=== PATIENT | male | born 1945 | race Caucasian/White ===

== ENCOUNTER 2017-12-07 11:53 | Emergency (ER) | payer MEDICARE, MEDICAID ==
[~2017-12-07] VITALS: Ht 177.8 cm; Wt 79.0 kg
[~2017-12-07 11:53] MED LIST: BAC15O TP; DOXY100C43 PO; NIZ2CR CORPAK; NO HOME MEDS
[2017-12-07 11:56] VITALS: BP 187/93
== END 2017-12-07 13:30 | disposition home or self-care (01) ==
LOC: ER 11:53
DX: J02.8 Acute pharyngitis due to other specified organisms (principal); G89.29 Other chronic pain; Z98.890 Other specified postprocedural states; Z79.899 Other long term (current) drug therapy
CPT/HCPCS: 99281

== ENCOUNTER 2020-12-30 07:34 | Emergency (ER) | payer MEDICARE, MEDICAID ==
[~2020-12-30] VITALS: Ht 177.8 cm; Wt 77.3 kg
[~2020-12-30 07:34] MED LIST changes: +METH-360 PO
[2020-12-30 07:56] VITALS: BP 179/105
== END 2020-12-30 08:34 | disposition home or self-care (01) ==
LOC: ER 07:35
DX: H93.8X2 Other specified disorders of left ear (principal); I10 Essential (primary) hypertension; G89.29 Other chronic pain; F12.90 Cannabis use, unspecified, uncomplicated; F17.200 Nicotine dependence, unspecified, uncomplicated; Z86.14 Personal history of Methicillin resistant Staphylococcus aureus infection; Z72.89 Other problems related to lifestyle; Z98.890 Other specified postprocedural states; Z88.8 Allergy status to other drugs, medicaments and biological substances; Z79.2 Long term (current) use of antibiotics; Z79.899 Other long term (current) drug therapy
CPT/HCPCS: 99282

== ENCOUNTER 2024-12-01 07:33 | Emergency (ER) | payer MEDICARE, MEDICAID ==
[~2024-12-01] VITALS: Ht 177.8 cm; Wt 75.9 kg
[2024-12-01 07:35] VITALS: BP 182/85; PULSE 96; RESP 16; TEMP 97.9; O2SAT 94
== END 2024-12-01 09:00 | disposition home or self-care (01) ==
LOC: ER 07:34
DX: S62.603A Fracture of unspecified phalanx of left middle finger, initial encounter for closed fracture (principal); I10 Essential (primary) hypertension; G89.29 Other chronic pain; M54.9 Dorsalgia, unspecified; F12.90 Cannabis use, unspecified, uncomplicated; Z72.89 Other problems related to lifestyle; Z88.5 Allergy status to narcotic agent; Z79.899 Other long term (current) drug therapy; Z98.890 Other specified postprocedural states; X58.XXXA Exposure to other specified factors, initial encounter; Y93.89 Activity, other specified; Y92.89 Other specified places as the place of occurrence of the external cause; Y99.8 Other external cause status
CPT/HCPCS: 29125; 29130; 73120; 99283